=== PATIENT | male | born 1980 | race Caucasian/White ===

== ENCOUNTER → 2016-12-17 | Outpatient (REF) | payer BC | LOC: M SMT 08:30 | PROVIDERS: ATTEND Urology | DX: Z30.2 Encounter for sterilization (principal) ==

== ENCOUNTER → 2017-03-10 | Outpatient (REF) | payer BC ==
[2017-03-10 14:17] LABS: IMMMOTILE SPERM CENTRIFUGED ABSENT (ABSENT); IMMOTILE SPERM ABSENT (ABSENT); MOTILE SPERM ABSENT (ABSENT); MOTILE SPERM CENTRIFUGED ABSENT (ABSENT)
== END ==
LOC: M SMT 14:13
PROVIDERS: ATTEND Urology
DX: Z30.2 Encounter for sterilization (principal)

== ENCOUNTER → 2017-07-07 | Outpatient (CLI) | payer OTHER ==
--- NOTE | 2017-07-07 10:30 | REP ---
CT ABDOMEN AND PELVIS WITHOUT IV CONTRAST: CT abdomen and pelvis pelvic performed without oral or IV contrast with sagittal and coronal reconstruction images. The visualized lung bases are clear. The liver, spleen, adrenals, and pancreas are grossly unremarkable. There is moderate right hydroureteronephrosis caused by a 6 mm calculus in the distal third of the right ureter as it crosses the iliac vessels. There is also a tiny 2 mm stone just proximal to that in the right ureter. There is a tiny 2 mm stone in the right lower pole collecting system and a 4 mm stone in the lower left renal collecting system. There is no left hydronephrosis. There is no abdominal aortic aneurysm. There is no adenopathy. There is no free air or free fluid. There is no bowel wall thickening. Urinary bladder is not distended and not optimally evaluated although no definite intraluminal stones are seen. There is no evidence of appendicitis. IMPRESSION: 6 mm stone in the distal third of the right ureter causes moderate right hydroureteronephrosis. There is also a tiny 2 mm stone in the same portion of the right ureter just superior to the larger stone. There is an intrarenal calculus in each renal collecting system. There is no left hydronephrosis. Signed by Trenton Brown MD 07/08/2017 04:23 P
== END ==
LOC: M RAD 09:37
PROVIDERS: ATTEND Physician Assistant
DX: M54.5 Low back pain (principal); N20.0 Calculus of kidney

== ENCOUNTER → 2017-08-10 | Outpatient (REF) | payer OTHER | LOC: M SMT 17:18 | PROVIDERS: ATTEND Urology | DX: N20.0 Calculus of kidney (principal) ==

== ENCOUNTER → 2021-06-07 | Outpatient (REF) | payer OTHER | LOC: M LAB REF 16:32 | PROVIDERS: ATTEND Family Medicine | DX: R74.01 Elevation of levels of liver transaminase levels (principal) ==

== ENCOUNTER → 2021-07-01 | Outpatient (CLI) | payer OTHER ==
--- NOTE | 2021-07-01 08:24 | REP ---
INDICATION: ELEVATED LFT. FINDINGS: Multiple ultrasonographic images of the liver show the hepatic parenchymal echo texture to appear unremarkable. There are no focal masses. There is no intrahepatic ductal dilatation. The common bile duct measures approximately 4.6 mm in its greatest transverse dimension. Multiple ultrasonographic images of the gallbladder show no focal or diffuse gallbladder wall thickening. There are no echogenic foci within the gallbladder lumen, which casts acoustic shadows. There is no pericholecystic edema. Images of the pancreatic region show no gross abnormality. The imaged portion of the right kidney is unremarkable. IMPRESSION: Unremarkable right upper quadrant ultrasound. Accredited by the [employer] in General Ultrasound. <Electronically signed by Doyle Cole > 07/01/21 [id number]
== END ==
LOC: M RAD 07:29
PROVIDERS: ATTEND Family Medicine
DX: R74.01 Elevation of levels of liver transaminase levels (principal)

== ENCOUNTER → 2023-02-24 | Outpatient (REF) | payer OTHER | LOC: M LAB REF 12:31 | PROVIDERS: ATTEND Family Medicine | DX: R74.01 Elevation of levels of liver transaminase levels (principal) ==

== ENCOUNTER 2023-11-11 08:57 | Day surgery (SDC) | payer OTHER ==
[~2023-11-11] VITALS: Ht 170.2 cm; Wt 82.9 kg
[~2023-11-11 08:57] MED LIST: BUPR300T92 PO; MELO15TA28 PO
[2023-11-11] MEDS: NS 1,000 ML IV ONE (09:14)
[2023-11-11] MEDS ORDERED: LIDOCAINE 2% 100MG/5ML SDV (FOR ANES.) As Ordered ONE (10:03)
[2023-11-11] MEDS ORDERED: propofoL 200 MG/20 ML VIAL As Ordered ONE (10:03)
[2023-11-11 10:23] VITALS: TEMP 99.1
[2023-11-11 10:42] VITALS: BP 168/89; O2SAT 99
== END 2023-11-11 10:52 | disposition home or self-care (01) ==
LOC: M OPP 08:57
PROVIDERS: ATTEND Internal Medicine Gastroenterology
DX: Z12.11 Encounter for screening for malignant neoplasm of colon (principal); Z12.12 Encounter for screening for malignant neoplasm of rectum; K64.0 First degree hemorrhoids